=== PATIENT | female | born 2000 | race Caucasian/White ===

== ENCOUNTER 2022-06-19 21:03 | Inpatient (IN) | payer OTHER, SELFPAY ==
[2022-06-19 21:30] VITALS: BP 138/94; PULSE 91; RESP 18; TEMP 36.6; O2SAT 98
[2022-06-19] MEDS: hydrOXYzine HCL 25 MG TABLET PO (23:21)
[2022-06-19] MEDS: Nicotine Polacrilex 2 MG GUM BUCCAL (23:21)
[2022-06-19] MEDS: traZODone HCL 50 MG TABLET PO (23:21)
[2022-06-20 02:25] VITALS: BMI 24.3
--- NOTE | 2022-06-20 02:27 | PC.ADMIT ---
Pt is a 21 year old female admitted to the unit after referral from COMMERCIAL CONSTRUCTION ESTIMATOR. Pt was initially admitted to ED at [facility] in [place] and [place] [facility] [place] Pt arrived on unit on 06/19/2022 at 2115. Legal status is CV. Pt denies currents medical issues but does report a hx of recurrent UTI's /kidney infections as well as exercise induced asthma. Pt reports using THC usually once monthly and vapes daily (equivalent to 1 vape pod a week or 3 cigarettes daily). Pt denies use of ETOH but reports casually drinking. Pt reports that she used cocaine d/t peer pressure situation on Thursday of this past week and it was her 2nd time using it. Pt's 1st cocaine use was 2 years ago. Utox from [facility] ED was positive for cocaine only. Precipitant, per pt; she was missing days from work due to increasing depressive feelings, anxiety and lack of any motivation. Everything started to pile up on pt after meeting with her boss and counsellor about missing work, which led to the use of the cocaine and THC with friends. Pt's work called d/t pt not going to work and pt's Mom once aware, spoke to pt regarding her feelings and was then brought for assessment to [facility]. Pt presents in hospital [facility] with a quiet and pleasant demeanor. Pt maintained good eye contact throughout interview. Pt states that she wants to develop coping skills and medication adjustments, as well as establishing a new psychiatrist for medication prescribing. Provider internet application developer Veto notified of admission and orders obtained. Hospitalist consult requested of Dr. Dodge @ 0680 on 06/20/2022. Pt placed on 15 minute safety checks, reports feeling safe in hospital.
[2022-06-20 09:41] LABS: Estimated Average Glucose 94 mg/dL; Hemoglobin A1c % 4.9 %
[2022-06-20 10:01] LABS: Alanine Aminotransferase 9 U/L (0-31); Alkaline Phosphatase 56 U/L (39-117); Anion Gap 11 (12-20); Aspartate Amino Transferase 12 U/L (5-31); Bilirubin Total 0.6 mg/dL (0.0-1.0); Blood Urea Nitrogen 9 mg/dL (9-16); Calcium 9.3 mg/dL (8.4-10.2); Carbon Dioxide 25 mmol/L (22-29); Chloride 104 mmol/L (96-108); Cholesterol 162 mg/dL; Creatinine Clr Calc Pharmacy 99.4; Estimated Glomerular Filt Rate > 60; Glucose Fasting 104 mg/dL (60-99); HDL Cholesterol 40 mg/dL; LDL Cholesterol Calculated 102 mg/dl; Potassium 4.4 mmol/L (3.3-5.1); Sodium 136 mmol/L (135-145); Total Protein 6.4 g/dL (6.5-8.0); Triglycerides 101 mg/dL
[2022-06-20 10:16] LABS: Thyroid Stimulating Hormone 0.37 uIU/mL (0.32-4.0)
[2022-06-20] MEDS: Nicotine Polacrilex 2 MG GUM BUCCAL ×5 (10:29→20:45)
[2022-06-20 10:31] LABS: Vitamin B12 298 pg/mL (200-900)
[2022-06-20 10:32] VITALS: BP 116/68; PULSE 86; RESP 17; O2SAT 96
--- NOTE | 2022-06-20 11:31 | HO.PM.IMCN ---
History of Present Illness Data of Consult Service Date: 06/20/22 Primary Care Provider: Unknown Physician HPI Reason for consult: Admission H&P Pt is a 21-year-old female with a PMH significant for exercise-induced asthma and recurrent UTIs with previous hospitalization for pyelonephritis who is seen for admission H&P. Pt is on no chronic home medications other than Abilify. Pt has no acute medical complaints at this time. No chest pain/pressure, palpitations. Denies SOB. No F/C, N/V, abdominal pain. Of note, pt has of chronic intermittent right-sided flank pain with no know trigger. PCP has now referred her to a specialist and she will be seeing a anatomy professor outpatient in July. Review of Systems Review of Systems: Denies chest pain/pressure, palpitations Shortness of breath Denies fever, chills, nausea, vomiting No abdominal pain Yes all other systems are reviewed and are negative [facility] Medical History (Updated 06/20/22 @ 11:47 by CARLITA Crain) Exercise-induced asthma Pyelonephritis Family History (Updated 06/20/22 @ 11:46 by CARLITA Crain) Other Asthma HTN (hypertension) Social History Household Members: Family Household Members Other:: Mother, brother Housing: House Do you presently have visiting nurse or other home services: No Patient Tobacco Use Status: Current everyday Tobacco user Years Smoked: 7 years Smoked in Last 30 Days: Yes e-Cigarette/Vaping Use: Currently Using Frequency of e-Cigarette/Vaping Use: 1 pod week Patient Interested in Nicotine Replacement: Yes (gun) Patient Given Instructions on How to Stop Smoking: Yes Date Education Initiated: 06/19/22 Use of substances other than those prescribed or required for medical reasons: Yes Substance Use Type: Crack/Cocaine, Marijuana and Caffiene Substance Use Frequency: Socially Last Used Substance: Weeks (ago) Last Used Substance Other:: THC - once monthly social, cocaine - 2 days ago, 2nd time using EVER Currently Displaying Signs/Symptoms of Drug Intoxication Withdrawal: No Any prior treatment program specific to substance use: No Have you been hit, kicked, punched, or otherwise hurt by someone within the past year? If so, by whom?: No Do you feel safe in your current relationship?: No Current Relationship Are you made to feel afraid or neglected: No Advance Directives: No Do you have thoughts of harming others: None Do you have a plan to hurt others: No Plan Recently lost weight without trying: No Nutrition Risks: No Nutritional Risk Patient : No : No Poor oral hygiene: No Meds Allergies Allergy/AdvReac Type Severity Reaction Status Date / Time penicillin G Allergy Unknown Anaphylaxis Verified 06/19/22 21:14 Active Medications: Current Medications Acetaminophen (Acetaminophen 325 Mg Tablet) 650 mg PO Q6H PRN PRN Reason: Headache/Pain Mild Scale (1-3) Al Hydroxide/Mg Hydroxide (Magnesium Hydrox/Alum Hydrox 30 Ml Oral.Susp) 30 ml PO Q6H PRN PRN Reason: Heartburn/Nausea Hydroxyzine HCl (Hydroxyzine Hcl 25 Mg Tablet) 25 mg PO Q6H PRN PRN Reason: Anxiety Last Admin: 06/19/22 23:21 Dose: 25 mg Magnesium Hydroxide (Milk Of Magnesia 30 Ml Oral.Susp) 30 ml PO DAILY PRN PRN Reason: Constipation Nicotine Polacrilex (Nicotine Polacrilex 2 Mg Gum) 2 mg BUCCAL Q2H PRN PRN Reason: Nicotine Cravings Last Admin: 06/20/22 10:29 Dose: 2 mg Trazodone HCl (Trazodone Hcl 50 Mg Tablet) 50 mg PO BEDTIME PRN PRN Reason: Insomnia Last Admin: 06/19/22 23:21 Dose: 50 mg Physical Exam Vital Signs and Narrative: Vital Signs: Last Vital Signs Temp 97.8 F 06/19/22 21:30 Pulse 86 06/20/22 10:32 Resp 17 06/20/22 10:32 BP 116/68 06/20/22 10:32 Pulse Ox 96 06/20/22 10:32 O2 Del Method 06/19/22 21:30 BMI result Body Mass Index 24.3 Constitutional: Alert, in no acute distress. Mental Status: Oriented to person, place and time. Eyes: Pupils are equal, round, and reactive to light. Ear, Nose, and Throat: Oropharynx clear, mucous membranes moist. Ears and nose without deformities. Trachea midline. Respiratory: Clear to auscultation bilaterally. No wheezing, rales, or rhonchi. Cardiovascular: S1, S2 regular. No murmurs, rubs, or gallops. Gastrointestinal: Abdomen soft, mild right lower quadrant tenderness, non-distended. Normal bowel sounds. Neurologic: Cranial nerves II-XI are grossly intact. No focal neurological deficits. Moves all extremities spontaneously. Skin: No rashes or lesions noted. Musculoskeletal: No cyanosis or clubbing. Extremities: No edema. Psychiatric: Normal mood and affect. Results Labs 06/20/22 09:08 Labs: Laboratory Results - last 24 hr 06/20/22 06/20/22 06/20/22 09:08 09:08 09:08 Anion Gap 11 L Estim Creat Clear Calc 99.4 Estimated GFR > 60 Fasting Glucose 104 H Estimat Average Glucose 94 Hemoglobin A1c % 4.9 Calcium 9.3 Total Bilirubin 0.6 AST 12 ALT 9 Alkaline Phosphatase 56 Total Protein 6.4 L Albumin 4.0 Triglycerides 101 Cholesterol 162 LDL Cholesterol, Calc 102 HDL Cholesterol 40 Vitamin B12 298 Folate 11.0 TSH 0.37 Assessment and Plan (1) Routine history and physical examination of adult: Status: Acute Plan Pt is a 21-year-old female with a PMH significant for exercise-induced asthma and recurrent UTIs with previous hospitalization for pyelonephritis who is seen for admission H&P. Pt is on no chronic home medications other than Abilify. Pt has no acute medical complaints at this time. Right lower-quadrant pain, chronic Pt to f/u outpatient with nephrology in July Thank you for allowing us to participate in the care of this pt. Signing off at this time. Please let us know if there are any future questions or concerns. Time Spent With Patient Time: Total time managing care of this patient today ____ minutes.
[2022-06-20] MEDS: buPROPion HCl XL 150 MG TAB.ER.24H PO (14:37)
[2022-06-20] MEDS: LORazepam 0.5 MG TABLET PO (19:06)
--- NOTE | 2022-06-20 20:08 | P.HPPS_ITS ---
HPI Date of Service: 06/20/22 Chief Complaint: SI HPI Narrative: 21 yo female self-presented with c/o anxiety and depression. she reported feeling overwhelmed, hopeless, amotivated, and purposeless. also frightening mood swings, risky sexual behaviors, excessive spending, isolating from loved ones, uncharacteristically excessive use of substances. on interview with MD, reporting symptoms described above for the past 2 months. she states her mood has been generally depressed and anxious for that time period. she states she typically sleeps about 7 hours nightly but in recent weeks has been sleeping much more. endorses amotivation and anergia. endorsing guilt and hopelessness, decreased concentratrion, and hyperphagia. reports largely PMR, but periods of agitation. denies caesar SI. she reports she was given the bipolar II Dx by yefri walton at [facility] [place], and has tried wellbutrin, zoloft, lamictal, and abilify (see psych Hx for details). discussion of Dx had with pt, asserts his opinion there is perhaps insufficient evidence to make the Dx just yet, that unipolar depression and perhaps substance use may still adequately explain her behaviors and experiences. no FH of bipolar diathesis, yet hypersomnia and -phagia support bipolar diathesis. in any case, due to inadequate trial on wellbutrin - pt states she was only ever on 150 mg daily - and cocern for possible activation by SSRIs if bipolar, pt agrees to another trial of wellbutrin to therapeutic dosing and for an adequate period of time. will star wellbutrin 150 today and increase to 300 on thursday. pt also asks for ativan, for which she had a script, she reports, which is granted. she is interested in GC/chlam testing, but not Hep or HIV. Past Psychiatric History: h/o therapy with same therapist since 10 yo. had been put on abilify 5 mg daily for Dx of bipolar II disorder. med trials: wellbutrin, zoloft, lamictal, abilify. wellbutrin was ineffective but likely was at too low a dose. zoloft was also at low doses. lamictal reportedly worked well for her but she developed rash after dose increase 9 months in and it was DCed. was on abilify 5 for 6 months and she feels it was not effective. her prescriber has reportedly recently terminated services after several no- shows. no h/o hosps, SA, SIB. Medical Evaluation Reviewed: Yes [facility] Medical History (Updated 06/20/22 @ 21:04 by Reji Jorgensen) Exercise-induced asthma Pyelonephritis Family History: father - anxiety, depression, OCD. h/o psych hosps. mother - anxiety and depression Social History: lives in [place] with her mother and younger brother. went on medical leave from her job the day of admission. parents when she was 10 yo. has had limited contact with her father since. HS grad with one year of college with some experience in mental health working at [facility] mental health unit and at [facility]. 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 Substance History: cocaine - utox POS, reports it was only second time she has used, and first in 2 years. per crisis eval, she re[ported using 1-3 times in the past month and started using in social settings several months ago. alcohol - twice weekly, 4-5+ drinks when she does nicotine - vapes Trauma History: denies h/o physical or emotional abuse, childhood sexual abuse or sexual assault. Diagnostics Vital Signs (24Hr): Vital Signs - 24 hr 06/19/22 21:30 06/20/22 10:32 Temperature 97.8 F Pulse Rate 91 86 Respiratory Rate 18 17 Blood Pressure 138/94 H 116/68 Pulse Oximetry 98 96 Oxygen Delivery Method Room Air BMI result Body Mass Index 24.3 Labs 06/20/22 09:08 Labs: Laboratory Results - last 48 hr 06/20/22 06/20/22 06/20/22 09:08 09:08 09:08 Sodium 136 Potassium 4.4 Chloride 104 Carbon Dioxide 25 Anion Gap 11 L BUN 9 Creatinine 0.76 Estim Creat Clear Calc 99.4 Estimated GFR > 60 Fasting Glucose 104 H Estimat Average Glucose 94 Hemoglobin A1c % 4.9 Calcium 9.3 Total Bilirubin 0.6 AST 12 ALT 9 Alkaline Phosphatase 56 Total Protein 6.4 L Albumin 4.0 Triglycerides 101 Cholesterol 162 LDL Cholesterol, Calc 102 HDL Cholesterol 40 Vitamin B12 298 Folate 11.0 TSH 0.37 Meds/Allergies Allergies Allergies Allergy/AdvReac Type Severity Reaction Status Date / Time penicillin G Allergy Unknown Anaphylaxis Verified 06/19/22 21:14 Mental Status Exam Mental Status Exam Narrative: adequately dressed and groomed. no PMA/PMR. cooperative. speech nml rate, amount, loudness, tone, latency. thoughts linear and logical. affect constricted, normo-intense, non-labile. mood pretty anxious and sad and tired. denies SI/SIBI/HI/AVH. Assessment & Plan Assessment & Plan (1) Depression, unspecified: Status: Acute Code(s): F32.A - Depression, unspecified Plan depressive disorder NOS - possibly bipolar II, possibly unipolar. start wellbutrin 150 x 3 days, then increase to 300 daily. pt was educated re lightbox therapy. appears to be under-reporting her substance misuse, from inconsistent statements about it. will need referral for prescriber, has therapist already. check GC/chlam Patient educated on: diagnosis, medication risk/benefits, substance abuse, therapeutic strategies and medical condition Reason for continued inpatient stay Substantial Risk for: inability to function Statement Statement: I have reviewed the history and physical and performed a pertinent examination on my patient. No changes have occurred unless specified. If the History and Physical was not performed prior to admission, the Hospitalist's service will be consulted for completing the admission physical. Time Spent With Patient Time: Total time managing care of this patient today __70__ minutes.
[2022-06-20 20:30] VITALS: BP 120/80; PULSE 96; RESP 18; TEMP 36.8; O2SAT 98
[2022-06-20] MEDS: traZODone HCL 50 MG TABLET PO (22:52)
[2022-06-20] MEDS: hydrOXYzine HCL 25 MG TABLET PO (22:52)
[2022-06-21] MEDS: buPROPion HCl XL 150 MG TAB.ER.24H PO (08:58)
[2022-06-21 09:03] VITALS: BP 90/53; PULSE 74; RESP 16; TEMP 36.8; O2SAT 96
[2022-06-21] MEDS: Nicotine Polacrilex 2 MG GUM BUCCAL ×6 (09:51→22:40)
--- NOTE | 2022-06-21 10:11 | HO.PSYCHPN ---
Subjective Subjective Date of Service: 06/21/22 Reason For Visit: SI Subjective Notes: Conditional Voluntary Healthcare Proxy: No Guardianship: No Medical Problems Affecting Mental Status: No Interim History: Patient was seen and discussed in rounds today. Records and plans were reviewed. Wall she has been isolative, somewhat quiet. She is hoping to learn some new coping skills. She is being increased on her Wellbutrin. No complaints or side effects. Eating and sleeping well. No changes were made today Medication Compliance: Yes Side effects from medications: No Attending Groups: Yes Review of Systems Review of Systems Yes all other systems are reviewed and are negative Mental Status Exam Mental Status Exam Narrative: In today's visit she is alert, oriented and pleasant. Normal speech. Moderate eye contact. Affect is appropriate and constricted. Some anxiety present. No SI. Cognitively intact. Judgment is intact Diagnostics Vital Signs (24Hr): Vital Signs - 24 hr 06/20/22 10:32 06/20/22 20:30 06/21/22 09:03 Temperature 98.2 F 98.3 F Pulse Rate 86 96 74 Respiratory Rate 17 18 16 Blood Pressure 116/68 120/80 90/53 L Pulse Oximetry 96 98 96 Oxygen Delivery Method Room Air Room Air BMI result Body Mass Index 24.3 Labs 06/20/22 09:08 Labs: Laboratory Results - last 48 hr 06/20/22 06/20/22 06/20/22 09:08 09:08 09:08 Sodium 136 Potassium 4.4 Chloride 104 Carbon Dioxide 25 Anion Gap 11 L BUN 9 Creatinine 0.76 Estim Creat Clear Calc 99.4 Estimated GFR > 60 Fasting Glucose 104 H Estimat Average Glucose 94 Hemoglobin A1c % 4.9 Calcium 9.3 Total Bilirubin 0.6 AST 12 ALT 9 Alkaline Phosphatase 56 Total Protein 6.4 L Albumin 4.0 Triglycerides 101 Cholesterol 162 LDL Cholesterol, Calc 102 HDL Cholesterol 40 Vitamin B12 298 Folate 11.0 TSH 0.37 Medications Medications Current Medications Acetaminophen (Acetaminophen 325 Mg Tablet) 650 mg PO Q6H PRN PRN Reason: Headache/Pain Mild Scale (1-3) Al Hydroxide/Mg Hydroxide (Magnesium Hydrox/Alum Hydrox 30 Ml Oral.Susp) 30 ml PO Q6H PRN PRN Reason: Heartburn/Nausea Bupropion HCl (Bupropion Hcl Xl 150 Mg Tab.Er.24h) 150 mg PO DAILY [facility] Stop: 06/22/22 09:01 Last Admin: 06/21/22 08:58 Dose: 150 mg Bupropion HCl (Bupropion Hcl Xl 300 Mg Tab.Er.24h) 300 mg PO DAILY DIGNA Hydroxyzine HCl (Hydroxyzine Hcl 25 Mg Tablet) 25 mg PO Q6H PRN PRN Reason: Anxiety Last Admin: 06/20/22 22:52 Dose: 25 mg Lorazepam (Lorazepam 0.5 Mg Tablet) 0.5 mg PO Q4H PRN PRN Reason: Anxiety Last Admin: 06/20/22 19:06 Dose: 0.5 mg Magnesium Hydroxide (Milk Of Magnesia 30 Ml Oral.Susp) 30 ml PO DAILY PRN PRN Reason: Constipation Nicotine Polacrilex (Nicotine Polacrilex 2 Mg Gum) 2 mg BUCCAL Q2H PRN PRN Reason: Nicotine Cravings Last Admin: 06/21/22 09:51 Dose: 2 mg Trazodone HCl (Trazodone Hcl 50 Mg Tablet) 50 mg PO BEDTIME PRN PRN Reason: Insomnia Last Admin: 06/20/22 22:52 Dose: 50 mg Allergies Allergies Allergy/AdvReac Type Severity Reaction Status Date / Time penicillin G Allergy Unknown Anaphylaxis Verified 06/19/22 21:14 Assessment & Plan Assessment & Plan (1) Depression, unspecified: Status: Acute Code(s): F32.A - Depression, unspecified Plan depressive disorder NOS - possibly bipolar II, possibly unipolar. start wellbutrin 150 x 3 days, then increase to 300 daily. pt was educated re lightbox therapy. appears to be under-reporting her substance misuse, from inconsistent statements about it. will need referral for prescriber, has therapist already. check GC/chlam 06/21: Continue current regimen and plans Reason for contiued inpatient stay Substantial Risk for: med/psych decompensation Time Spent With Patient Time: Total time managing care of this patient today ____ minutes.
[2022-06-21] MEDS: Nicotine 14 MG PATCH.TD24 TRANSDERMA (14:30)
[2022-06-21 15:04] LABS: CT PCR NOT DETECTED (Not Detect.); NG PCR NOT DETECTED (Not Detect.)
[2022-06-21 18:09] VITALS: BP 135/83; PULSE 80; RESP 18; TEMP 36.7; O2SAT 98
[2022-06-21] MEDS: traZODone HCL 50 MG TABLET PO (21:56)
[2022-06-21] MEDS: hydrOXYzine HCL 25 MG TABLET PO (21:56)
[2022-06-22] MEDS: LORazepam 0.5 MG TABLET PO (06:36)
[2022-06-22] MEDS: Acetaminophen 325 MG TABLET 650 MG PO ×2 (06:36→16:32)
--- NOTE | 2022-06-22 07:36 | P.PNPSI_ITS ---
Subjective Subjective Date of Service: 06/22/22 Reason For Visit: SI Subjective Notes: Conditional Voluntary Healthcare Proxy: No Guardianship: No Medical Problems Affecting Mental Status: No Interim History: Patient was seen and discussed in rounds today. Records and plans were reviewed. She has been pleasant, visible. Eating and sleeping adequately. She is having some problems with her urination which may be indicative of an infection which she gets ?often?. A UA with reflex culture was ordered. No other complaints or side effects. Her studies for STD were negative. Medication Compliance: Yes Side effects from medications: No Attending Groups: Yes Review of Systems Review of Systems Urinary discomfort Yes all other systems are reviewed and are negative Mental Status Exam Mental Status Exam Narrative: In today's visit she is alert, oriented and pleasant. Normal speech. Moderate eye contact. Affect is appropriate and constricted. Some anxiety present. No SI. Cognitively intact. Judgment is intact Diagnostics Vital Signs (24Hr): Vital Signs - 24 hr 06/21/22 09:03 06/21/22 18:09 Temperature 98.3 F 98.1 F Pulse Rate 74 80 Respiratory Rate 16 18 Blood Pressure 90/53 L 135/83 Pulse Oximetry 96 98 Oxygen Delivery Method Room Air Room Air BMI result Body Mass Index 24.3 Labs 06/20/22 09:08 Labs: Laboratory Results - last 48 hr 06/20/22 06/20/22 06/20/22 09:08 09:08 09:08 Sodium 136 Potassium 4.4 Chloride 104 Carbon Dioxide 25 Anion Gap 11 L BUN 9 Creatinine 0.76 Estim Creat Clear Calc 99.4 Estimated GFR > 60 Fasting Glucose 104 H Estimat Average Glucose 94 Hemoglobin A1c % 4.9 Calcium 9.3 Total Bilirubin 0.6 AST 12 ALT 9 Alkaline Phosphatase 56 Total Protein 6.4 L Albumin 4.0 Triglycerides 101 Cholesterol 162 LDL Cholesterol, Calc 102 HDL Cholesterol 40 Vitamin B12 298 Folate 11.0 TSH 0.37 Chlam trachomat DNA PCR N.gonorrhoeae DNA (PCR) 06/21/22 12:40 Sodium Potassium Chloride Carbon Dioxide Anion Gap BUN Creatinine Estim Creat Clear Calc Estimated GFR Fasting Glucose Estimat Average Glucose Hemoglobin A1c % Calcium Total Bilirubin AST ALT Alkaline Phosphatase Total Protein Albumin Triglycerides Cholesterol LDL Cholesterol, Calc HDL Cholesterol Vitamin B12 Folate TSH Chlam trachomat DNA PCR NOT DETECTED N.gonorrhoeae DNA (PCR) NOT DETECTED Medications Medications Current Medications Acetaminophen (Acetaminophen 325 Mg Tablet) 650 mg PO Q6H PRN PRN Reason: Headache/Pain Mild Scale (1-3) Last Admin: 06/22/22 06:36 Dose: 650 mg Al Hydroxide/Mg Hydroxide (Magnesium Hydrox/Alum Hydrox 30 Ml Oral.Susp) 30 ml PO Q6H PRN PRN Reason: Heartburn/Nausea Bupropion HCl (Bupropion Hcl Xl 150 Mg Tab.Er.24h) 150 mg PO DAILY [facility] Stop: 06/22/22 09:01 Last Admin: 06/21/22 08:58 Dose: 150 mg Bupropion HCl (Bupropion Hcl Xl 300 Mg Tab.Er.24h) 300 mg PO DAILY [facility] Hydroxyzine HCl (Hydroxyzine Hcl 25 Mg Tablet) 25 mg PO Q6H PRN PRN Reason: Anxiety Last Admin: 06/21/22 21:56 Dose: 25 mg Lorazepam (Lorazepam 0.5 Mg Tablet) 0.5 mg PO Q4H PRN PRN Reason: Anxiety Last Admin: 06/22/22 06:36 Dose: 0.5 mg Magnesium Hydroxide (Milk Of Magnesia 30 Ml Oral.Susp) 30 ml PO DAILY PRN PRN Reason: Constipation Nicotine (Nicotine 14 Mg Patch.Td24) 14 mg TRANSDERMA DAILY [facility] Last Admin: 06/21/22 14:30 Dose: 14 mg Nicotine Polacrilex (Nicotine Polacrilex 2 Mg Gum) 2 mg BUCCAL Q2H PRN PRN Reason: Nicotine Cravings Last Admin: 06/21/22 22:40 Dose: 2 mg Trazodone HCl (Trazodone Hcl 50 Mg Tablet) 50 mg PO BEDTIME PRN PRN Reason: Insomnia Last Admin: 06/21/22 21:56 Dose: 50 mg Allergies Allergies Allergy/AdvReac Type Severity Reaction Status Date / Time penicillin G Allergy Unknown Anaphylaxis Verified 06/19/22 21:14 Assessment & Plan Assessment & Plan (1) Depression, unspecified: Status: Acute Code(s): F32.A - Depression, unspecified Plan depressive disorder NOS - possibly bipolar II, possibly unipolar. start wellbutrin 150 x 3 days, then increase to 300 daily. pt was educated re lightbox therapy. appears to be under-reporting her substance misuse, from inconsistent statements about it. will need referral for prescriber, has therapist already. check GC/chlam 06/21: Continue current regimen and plans 06/22: Continue current regimen and plans. UA with reflex ordered Reason for contiued inpatient stay Substantial Risk for: med/psych decompensation Time Spent With Patient Time: Total time managing care of this patient today ____ minutes.
[2022-06-22] MEDS: buPROPion HCl XL 150 MG TAB.ER.24H PO (08:53)
[2022-06-22] MEDS: Nicotine 14 MG PATCH.TD24 TRANSDERMA (08:53)
[2022-06-22 10:06] VITALS: BP 106/68; PULSE 86; RESP 15; TEMP 36.6; O2SAT 98
[2022-06-22] MEDS: Nicotine Polacrilex 2 MG GUM BUCCAL ×5 (11:18→23:00)
[2022-06-22 11:43] LABS: Bacteria Urine Trace (None Seen); Hyaline Casts Urine 0-2 /LPF (0-2); RBC Urine 0-2 /HPF (0-2)
[2022-06-22 11:46] LABS: Color Urine Yellow; Glucose Urine UA Negative (Negative); Leukocyte Esterase Urine Small (1+) (Negative); Nitrite Urine Negative (Negative); PH 6.5 (5.0-9.0); Specific Gravity - Urine <= 1.005 (1.005-1.025); UACC Culture Trigger YES; UMIC TRIGGER UACC YES; Urine Blood Negative (Negative); Urine Ketones Negative (Negative); Urine Protein Negative (Neg-Trace)
[2022-06-22 11:47] LABS: Appearance Urine Hazy
[2022-06-22 20:15] VITALS: BP 113/75; PULSE 90; RESP 16; TEMP 36.8; O2SAT 97
[2022-06-22] MEDS: Sulfamethox/Trimeth 800/160 TABLET 1 TAB PO (21:10)
[2022-06-22] MEDS: traZODone HCL 50 MG TABLET PO (22:59)
[2022-06-22] MEDS: hydrOXYzine HCL 25 MG TABLET PO (22:59)
[2022-06-23 08:30] VITALS: BP 108/64; PULSE 66; RESP 18; TEMP 36.7; O2SAT 98
[2022-06-23] MEDS: Nicotine 14 MG PATCH.TD24 TRANSDERMA (08:35)
[2022-06-23] MEDS: buPROPion HCl XL 300 MG TAB.ER.24H PO (08:36)
[2022-06-23] MEDS: Sulfamethox/Trimeth 800/160 TABLET 1 TAB PO ×2 (08:36→22:43)
[2022-06-23] MEDS: Nicotine Polacrilex 2 MG GUM BUCCAL ×5 (10:55→21:41)
[2022-06-23] MEDS: LORazepam 0.5 MG TABLET PO (10:55)
--- NOTE | 2022-06-23 14:29 | P.PNPSI_ITS ---
Subjective Subjective Date of Service: 06/23/22 Reason For Visit: SI Interim History: calm, cooperative, pleasant, engaged. acknowledges she is bored. states her anxiety and depression were improved over the weekend. mother requesting family mtg for tomorrow. wanted to DC tomorrow but agreeable to stay for another day to see how she responds to wellbutrin dosing increase. per staffdenies SI/HI/AVH. safe on unit. eating, sleeping. visible. TV. Mental Status Exam Mental Status Exam Narrative: adequately dressed and groomed. no PMA/PMR. cooperative. speech nml rate, amount, loudness, tone, latency. thoughts linear and logical. affect more flexible, normo-intense, non-labile. mood improved. no SI/SIBI/HI/AVH expressed. Diagnostics Vital Signs (24Hr): Vital Signs - 24 hr 06/22/22 20:15 06/23/22 08:30 Temperature 98.2 F 98.0 F Pulse Rate 90 66 Respiratory Rate 16 18 Blood Pressure 113/75 108/64 Pulse Oximetry 97 98 Oxygen Delivery Method Room Air Room Air BMI result Body Mass Index 24.3 Labs 06/20/22 09:08 Labs: Laboratory Results - last 48 hr 06/21/22 06/22/22 06/22/22 12:40 11:20 11:20 Urine Color Yellow Cancelled Urine Appearance Hazy Cancelled Urine pH 6.5 Cancelled Ur Specific [place] <= 1.005 Cancelled Urine Protein Negative Cancelled Urine Glucose (UA) Negative Cancelled Urine Ketones Negative Cancelled Urine Blood Negative Cancelled Urine Nitrite Negative Cancelled Ur Leukocyte Esterase Small (1+) H Cancelled Urine RBC 0-2 Cancelled Urine WBC 11-20 H Cancelled Urine WBC Clumps Cancelled Ur Squamous Epith Cells 6-10 Cancelled Ur Transition Epith Cell Cancelled Ur Renal Epithelial Cell Cancelled Calcium Oxalate Crystal Cancelled Leucine Crystals Cancelled Cystine Crystals Cancelled Tyrosine Crystals Cancelled Other Crystals Cancelled Urine Bacteria Trace Cancelled Urine Parasites Cancelled Bilirubin Casts Cancelled Epithelial Casts Cancelled Fatty Casts Cancelled Hyaline Casts 0-2 Cancelled Granular Casts Cancelled Waxy Casts Cancelled Broad Casts Cancelled RBC Casts Cancelled WBC Casts Cancelled Other Casts Cancelled Urine Trichomonas Cancelled Urine Yeast Cancelled Chlam trachomat DNA PCR NOT DETECTED N.gonorrhoeae DNA (PCR) NOT DETECTED Medications Medications Current Medications Acetaminophen (Acetaminophen 325 Mg Tablet) 650 mg PO Q6H PRN PRN Reason: Headache/Pain Mild Scale (1-3) Last Admin: 06/22/22 16:32 Dose: 650 mg Al Hydroxide/Mg Hydroxide (Magnesium Hydrox/Alum Hydrox 30 Ml Oral.Susp) 30 ml PO Q6H PRN PRN Reason: Heartburn/Nausea Bupropion HCl (Bupropion Hcl Xl 300 Mg Tab.Er.24h) 300 mg PO DAILY [facility] Last Admin: 06/23/22 08:36 Dose: 300 mg Hydroxyzine HCl (Hydroxyzine Hcl 25 Mg Tablet) 25 mg PO Q6H PRN PRN Reason: Anxiety Last Admin: 06/22/22 22:59 Dose: 25 mg Lorazepam (Lorazepam 0.5 Mg Tablet) 0.5 mg PO Q4H PRN PRN Reason: Anxiety Last Admin: 06/23/22 10:55 Dose: 0.5 mg Magnesium Hydroxide (Milk Of Magnesia 30 Ml Oral.Susp) 30 ml PO DAILY PRN PRN Reason: Constipation Nicotine (Nicotine 14 Mg Patch.Td24) 14 mg TRANSDERMA DAILY [facility] Last Admin: 06/23/22 08:35 Dose: 14 mg Nicotine Polacrilex (Nicotine Polacrilex 2 Mg Gum) 2 mg BUCCAL Q2H PRN PRN Reason: Nicotine Cravings Last Admin: 06/23/22 10:55 Dose: 2 mg Trazodone HCl (Trazodone Hcl 50 Mg Tablet) 50 mg PO BEDTIME PRN PRN Reason: Insomnia Last Admin: 06/22/22 22:59 Dose: 50 mg Trimethoprim/Sulfamethoxazole (Sulfamethox/Trimeth 800/160 Tablet) 1 tab PO Q12H [facility] Stop: 07/01/22 23:59 Last Admin: 06/23/22 08:36 Dose: 1 tab Allergies Allergies Allergy/AdvReac Type Severity Reaction Status Date / Time penicillin G Allergy Unknown Anaphylaxis Verified 06/19/22 21:14 Assessment & Plan Assessment & Plan (1) Depression, unspecified: Status: Acute Code(s): F32.A - Depression, unspecified Plan depressive disorder NOS - possibly bipolar II, possibly unipolar. start wellbutrin 150 x 3 days, then increase to 300 daily. pt was educated re lightbox therapy. appears to be under-reporting her substance misuse, from inconsistent statements about it. will need referral for prescriber, has therapist already. check GC/chlam 06/21: Continue current regimen and plans 06/22: Continue current regimen and plans. UA with reflex ordered 06/23: GC/chlam NEG. being empirically treated for UTI. mood improved over past several days. today first day on wellbutrin 300. family mtg tomorrow and plan for weds D/C. Reason for contiued inpatient stay Substantial Risk for: rapid decompensation Time Spent With Patient Time: Total time managing care of this patient today _25___ minutes.
[2022-06-23 20:25] VITALS: BP 119/72; PULSE 85; RESP 16; TEMP 36.6; O2SAT 98
[2022-06-23] MEDS: traZODone HCL 50 MG TABLET PO (22:43)
[2022-06-23] MEDS: hydrOXYzine HCL 25 MG TABLET PO (22:43)
[2022-06-23] MEDS: Acetaminophen 325 MG TABLET 650 MG PO (23:07)
[2022-06-24 08:35] VITALS: BP 96/52; PULSE 72; RESP 18; TEMP 36.6; O2SAT 98
[2022-06-24] MEDS: buPROPion HCl XL 300 MG TAB.ER.24H PO (09:05)
[2022-06-24] MEDS: Nicotine 14 MG PATCH.TD24 TRANSDERMA (09:06)
[2022-06-24] MEDS: Sulfamethox/Trimeth 800/160 TABLET 1 TAB PO ×2 (09:06→21:16)
[2022-06-24] MEDS: Nicotine Polacrilex 2 MG GUM BUCCAL ×4 (10:59→21:14)
--- NOTE | 2022-06-24 11:27 | P.DS_ITS ---
DS: Providers Provider Date of Service: 06/24/22 Date of admission: 06/19/22 21:03 Primary care physician: Unknown Physician Consults: 06/19/22 21:14 Consult to Hospitalist Routine Consulting Provider: Hospitalist Reason For Exam: medical H&P DS: Diagnosis Discharge Diagnosis (1) Depression, unspecified: Status: Acute DS: Medications Discharge Medications Home Medications: Previous Rx's Medication Instructions Recorded bupropion HCl 300 mg 24 hr tablet, 300 mg PO DAILY 30 days #30 tabs 06/24/22 extended release trazodone 50 mg tablet 50 mg PO BEDTIME PRN Insomnia 30 06/24/22 days #30 tabs Mental Status Exam Mental Status Exam Narrative: adequately dressed and groomed. no PMA/PMR. cooperative. speech nml rate, amount, loudness, tone, latency. thoughts linear and logical. affect more flexible, normo-intense, non-labile. mood good. i feel fine. no SI/SIBI/HI/AVH. Data Data Completed and Pending Completed studies during hospitalization [Text1]: 06/20/22 06/20/22 06/20/22 09:08 09:08 09:08 Sodium 136 Potassium 4.4 Chloride 104 Carbon Dioxide 25 Anion Gap 11 L BUN 9 Creatinine 0.76 Estim Creat Clear Calc 99.4 Estimated GFR > 60 Fasting Glucose 104 H Estimat Average Glucose 94 Hemoglobin A1c % 4.9 Calcium 9.3 Total Bilirubin 0.6 AST 12 ALT 9 Alkaline Phosphatase 56 Total Protein 6.4 L Albumin 4.0 Triglycerides 101 Cholesterol 162 LDL Cholesterol, Calc 102 HDL Cholesterol 40 Vitamin B12 298 Folate 11.0 TSH 0.37 Urine Color Urine Appearance Urine pH Ur Specific [place] Urine Protein Urine Glucose (UA) Urine Ketones Urine Blood Urine Nitrite Ur Leukocyte Esterase Urine RBC Urine WBC Urine WBC Clumps Ur Squamous Epith Cells Ur Transition Epith Cell Ur Renal Epithelial Cell Calcium Oxalate Crystal Leucine Crystals Cystine Crystals Tyrosine Crystals Other Crystals Urine Bacteria Urine Parasites Bilirubin Casts Epithelial Casts Fatty Casts Hyaline Casts Granular Casts Waxy Casts Broad Casts RBC Casts WBC Casts Other Casts Urine Trichomonas Urine Yeast Chlam trachomat DNA PCR N.gonorrhoeae DNA (PCR) 06/21/22 06/22/22 06/22/22 12:40 11:20 11:20 Sodium Potassium Chloride Carbon Dioxide Anion Gap BUN Creatinine Estim Creat Clear Calc Estimated GFR Fasting Glucose Estimat Average Glucose Hemoglobin A1c % Calcium Total Bilirubin AST ALT Alkaline Phosphatase Total Protein Albumin Triglycerides Cholesterol LDL Cholesterol, Calc HDL Cholesterol Vitamin B12 Folate TSH Urine Color Yellow Cancelled Urine Appearance Hazy Cancelled Urine pH 6.5 Cancelled Ur Specific [place] <= 1.005 Cancelled Urine Protein Negative Cancelled Urine Glucose (UA) Negative Cancelled Urine Ketones Negative Cancelled Urine Blood Negative Cancelled Urine Nitrite Negative Cancelled Ur Leukocyte Esterase Small (1+) H Cancelled Urine RBC 0-2 Cancelled Urine WBC 11-20 H Cancelled Urine WBC Clumps Cancelled Ur Squamous Epith Cells 6-10 Cancelled Ur Transition Epith Cell Cancelled Ur Renal Epithelial Cell Cancelled Calcium Oxalate Crystal Cancelled Leucine Crystals Cancelled Cystine Crystals Cancelled Tyrosine Crystals Cancelled Other Crystals Cancelled Urine Bacteria Trace Cancelled Urine Parasites Cancelled Bilirubin Casts Cancelled Epithelial Casts Cancelled Fatty Casts Cancelled Hyaline Casts 0-2 Cancelled Granular Casts Cancelled Waxy Casts Cancelled Broad Casts Cancelled RBC Casts Cancelled WBC Casts Cancelled Other Casts Cancelled Urine Trichomonas Cancelled Urine Yeast Cancelled Chlam trachomat DNA PCR NOT DETECTED N.gonorrhoeae DNA (PCR) NOT DETECTED 06/22/22 11:20 Urine clean catch - Urine marie top Urine Culture - Final Escherichia coli DS: Summary Hospital Course Hospital Course: per 06/20 admission note: 21 yo female self-presented with c/o anxiety and depression.? she reported feeling overwhelmed, hopeless, amotivated, and purposeless.? also frightening mood swings, risky sexual behaviors, excessive spending, isolating from loved ones, uncharacteristically excessive use of substances.? on interview with , reporting symptoms described above for the past 2 months.? she states her mood has been generally depressed and anxious for that time period.? she states she typically sleeps about 7 hours nightly but in recent weeks has been sleeping much more.? endorses amotivation and anergia.? endorsing guilt and hopelessness, decreased concentratrion, and hyperphagia.? reports largely PMR, but periods of agitation.? denies caesar SI.? she reports she was given the bipolar II Dx by yefri walton at [facility], and has tried wellbutrin, zoloft, lamictal, and abilify (see psych Hx for details).? discussion of Dx had with pt, asserts his opinion there is perhaps insufficient evidence to make the Dx just yet, that unipolar depression and perhaps substance use may still joseph quately explain her behaviors and experiences.? no FH of bipolar diathesis, yet hypersomnia and -phagia support bipolar diathesis.? in any case, due to inadequate trial on wellbutrin - pt states she was only ever on 150 mg daily - and cocern for possible activation by SSRIs if bipolar, pt agrees to another trial of wellbutrin to therapeutic dosing and for an adequate period of time.? will star wellbutrin 150 today and increase to 300 on thursday.? pt also asks for ativan, for which she had a script, she reports, which is granted.? she is interested in GC/chlam testing, but not Hep or HIV. Past Psychiatric History: h/o therapy with same therapist since 10 yo. had been put on abilify 5 mg daily for Dx of bipolar II disorder. med trials: wellbutrin, zoloft, lamictal, abilify. wellbutrin was ineffective but likely was at too low a dose. zoloft was also at low doses. lamictal reportedly worked well for her but she developed rash after dose increase 9 months in and it was DCed. was on abilify 5 for 6 months and she feels it was not effective. her prescriber has reportedly recently terminated services after several no- shows. no h/o hosps, SA, SIB. Medical Evaluation Reviewed: Yes [facility] Medical History?(Updated 06/20/22 @ 21:04 by Reji Jorgensen) Exercise-induced asthma Pyelonephritis Family History: father - anxiety, depression, OCD. ? h/o psych hosps. mother - anxiety and depression Social History: [place] mother and younger brother.? went on medical leave from her job the day of admission.? parents when she was 10 yo.? has had limited contact with her father since.? HS grad with one year of college with some experience in mental health working at [facility] and at [facility] [employer].? 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 Substance History: cocaine - utox POS, reports it was only second time she has used, and first in 2 years.? per crisis eval, she re[ported using 1-3 times in the past month and started using in social settings several months ago. alcohol - twice weekly, 4-5+ drinks when she does nicotine - vapes Trauma History: denies h/o physical or emotional abuse, childhood sexual abuse or sexual assault. 06/21: Patient was seen and discussed in rounds today.? Records and plans were reviewed.? Wall she has been isolative, somewhat quiet.? She is hoping to learn some new coping skills.? She is being increased on her Wellbutrin.? No complaints or side effects.? Eating and sleeping well.? No changes were made today 06/22: Patient was seen and discussed in rounds today.? Records and plans were reviewed.? She has been pleasant, visible.? Eating and sleeping adequately.? She is having some problems with her urination which may be indicative of an infection which she gets ?often?.? A UA with reflex culture was ordered.? No other complaints or side effects.? Her studies for STD were negative. 06/23: calm, cooperative, pleasant, engaged.? acknowledges she is bored.? states her anxiety and depression were improved over the weekend.? mother requesting family mtg for tomorrow.? wanted to DC tomorrow but agreeable to stay for another day to see how she responds to wellbutrin dosing increase.? per staffdenies SI/HI/AVH.? safe on unit.? eating, sleeping.? visible.? TV. Precis: 06/20: depressive disorder NOS - possibly bipolar II, possibly unipolar. start wellbutrin 150 x 3 days, then increase to 300 daily. pt was educated re lightbox therapy. appears to be under-reporting her substance misuse, from inconsistent statements about it. will need referral for prescriber, has therapist already. check GC/chlam. 06/21: Continue current regimen and plans 06/22: Continue current regimen and plans.? UA with reflex ordered 06/23: GC/chlam NEG.? being empirically treated for UTI.? mood improved over past several days.? today first day on wellbutrin 300.? family mtg tomorrow and plan for weds D/C. 06/24: family mtg held. discharge tomorrow to outpt F/U. no s/e from wellbutrin. Time Spent with Patient Time attestation: Total time managing care of this patient today ____ minutes. Time spent: Greater than 30 minutes Discharge Plan Discharge Anticipated Discharge Date/Time: 06/25/22 11:00 Patient Disposition: Home, Self-Care Discharge Diagnosis: Depressive Disorder NOS Referrals: Dr. Salvador (psychiatrist) [Other] - 07/10/22 10:00 am Partial Hospitalization Program (PHP) [Other] - 07/03/22 8:00 am (IN OFFICE INTAKE) Physician,Unknown J [Primary Care Provider] - 1 Week Discharge Medications: New trazodone 50 mg Tablet 50 mg PO BEDTIME PRN (Reason: Insomnia) 30 Days Qty: 30 0RF bupropion HCl 300 mg Tablet Extended Release 24 Hr 300 mg PO DAILY 30 Days Qty: 30 0RF Discharge Orders: Discharge Order (Routine); Ordered 06/25/22 Ordered By: Reji Jorgensen Diet: Advance to usual diet Activity on Discharge: As tolerated Stand Alone Forms: Patient Portal Discharge page Care Plan Goals: remain safe and sober in the outpatient treatment setting Health Concerns: none Plan of Treatment: take medications as prescribed attend appointments as scheduled Assessment: not at imminent risk of harm to self or others
[2022-06-24] MEDS: LORazepam 0.5 MG TABLET PO ×2 (14:39→23:11)
[2022-06-24 21:18] VITALS: BP 106/62; PULSE 89; TEMP 36.6; O2SAT 99
[2022-06-24] MEDS: Milk of Magnesia 30 ML ORAL.SUSP PO (23:11)
[2022-06-24] MEDS: traZODone HCL 50 MG TABLET PO (23:11)
[2022-06-25] MEDS: Sulfamethox/Trimeth 800/160 TABLET 1 TAB PO (09:35)
[2022-06-25] MEDS: buPROPion HCl XL 300 MG TAB.ER.24H PO (09:35)
[2022-06-25 10:00] VITALS: BP 110/70; PULSE 87; RESP 16; TEMP 36.4; O2SAT 99
[2022-06-25] MEDS: Nicotine Polacrilex 2 MG GUM BUCCAL (10:02)
--- NOTE | 2022-06-25 12:12 | PC.NURSE ---
Patient engages easily. Reports feeling ready to discharge. Reports it was helpful to be here, feels overall improved. Denies depression or sadness, denies SI/HI. Denies self harming ideations. Denies perceptual disturbances, no overt psychosis or expressed delusions. Discharge paperwork reviewed, medications reviewed, follow up appointments reviewed, states understanding. All belongings taken with patient. Crisis numbers were provided to patient. PCP office to call with follow up appointment.
== END 2022-06-25 11:25 | disposition home or self-care (01) | DRG 754 ==
PROVIDERS: Psychiatry & Neurology Psychiatry; Social Worker; Admitting Provider Psychiatry & Neurology Psychiatry; Visit Provider Psychiatry & Neurology Psychiatry
DX: F32.A Depression, unspecified (principal); F17.210 Nicotine dependence, cigarettes, uncomplicated; J45.909 Unspecified asthma, uncomplicated; Z23 Encounter for immunization; Z71.6 Tobacco abuse counseling; Z87.440 Personal history of urinary (tract) infections; Z88.0 Allergy status to penicillin; Z79.899 Other long term (current) drug therapy
CPT/HCPCS: 0353U; 36415; 80053; 80061; 81001; 82607; 82746; 83036; 84443; 87086; 87088; 87186; 90686

== ENCOUNTER 2022-07-24 08:15 | Outpatient (RCR) | payer OTHER, SELFPAY ==
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
[2022-07-04 11:57] VITALS: BMI 23.8
[2022-07-04 13:20] VITALS: BP 100/68; PULSE 80; TEMP 37.1
--- NOTE | 2022-07-04 13:34 | PC.ADMIT ---
Patient is a 21 year old female who was referred to [facility] by the inpatient behavioral health unit where she was admitted d/t mood instability and engaging in risky behaviors. Patient used cocaine prior to admission and was using ETOH on the weekends. Patient reports she was isolating spending a lot of time in bed. Reports depression and anxiety and feeling overwhelmed with financial issues and her job. Patient reports her now previous employer is understanding of her mental health issues and stated she thinks she was fired however she would be able to re-apply for her job if she decided to. Patient wants to work on her mental health. Patient presented with depressed mood and anxious affect. She is oriented x4. Denied SI or thoughts to harm herself. Reports she last used ETOH and cocaine on the 28 of June. Denied any cravings. State she used cocaine socially a few times. Stated all of her friends use and she has distanced herself from her friends as a result. Medications reconciled with inpatient records and per patient. Patient reports she is taking medications as prescribed.
--- NOTE | 2022-07-11 08:01 | HO.PHP ---
The clients case was reviewed and opened in treatment team
--- NOTE | 2022-07-11 09:46 | HO.PHP ---
I called Nilda to check in . She is waiting for the results of a covid test and plans to be here Thursday.
--- NOTE | 2022-07-15 15:19 | HO.PHP ---
luz maria called out sick said she would be here tomorrow
--- NOTE | 2022-07-15 15:21 | HO.PHP ---
i called the client and left a message to see how she is doing and to let her know we look forward to seeing her tomorrow.
--- NOTE | 2022-07-17 16:55 | P.PNPSP_ITS ---
Subjective Subjective Date of Service: 07/17/22 Reason For Visit: depression Medical Problems Affecting Mental Status: No Interim History: Was physically ill over weekend, feels better now. Outpatient psychiatrist prescribed Lexapro last week 10 mg, tolerating well. No SI, no safety concerns. Has been craving using substances recently, states I have been thinking about it a lot ?. Would like further recovery support services. Interested in substance use IOP, as well as attending meetings. Finds living with her grandmother much calmer than previous chaotic home life in [place]. Medication Compliance: Yes Side effects from medications: No Attending Groups: Yes Review of Systems Acute medical concerns: No Medical Review of Systems: unchanged Review of Systems Review of Systems Yes all other systems are reviewed and are negative Constitutional: Reports no additional constitutional complaints Mental Status Exam Mental Status Exam Narrative: NAD. Patient Appearance: Well Grooomed and Appropriate Patient Orientation: Person, Place, Time and Situation Level of Consciousness: Awake, Appropriate and Alert Patient Behavior: Cooperative and Good Eye Contact Mood Description: Appropriate Affect Description: Depressed and Anxious Ability to Follow Directions: Good Speech Pattern: Clear and Appropriate Memory Description: Intact Hallucinations: None Delusions: Not Present Thought Process: Intact Thought Content: positive for Intact Depressive Symptoms: Increased Anxiety, Loss of Int. in Activity, Isolating- Friends/Family, Unhappiness, Low Self Esteem and Loss of Energy Judgement: Fair Diagnostics Vital Signs (24Hr): BMI result Body Mass Index 23.8 Assessment & Plan Assessment & Plan (1) Depression, unspecified: Status: Acute Code(s): F32.A - Depression, unspecified Assessment and Plan: Overall continues with depressed, anxious mood an affect. However, feels slight improvement. Has begun taking Lexapro in addition to other meds, tolerating well. No SI, no safety concerns. (2) Cocaine abuse: Status: Acute Code(s): F14.10 - Cocaine abuse, uncomplicated Assessment and Plan: Has been craving cocaine use recently. Had previously been using it ?a few times a week ?. States that she has been ?thinking about it a lot?. She had used alcohol in the past as well, states that she would do these together. Interested in recovery support information. We discussed recovery center in [place], she was provided with web site information as well as an overview of their services. Also discussed other options such as local community support groups, such as 12 step programs, others. She states she is not sure what she may like to do, but would like information regarding multiple options. Discussed patient attending substance use groups while here in partial. She was agreeable to this plan. Plan 1. Continue with current [facility] plan of care. 2. Continue with medications as currently prescribed by outpatient provider. 3. Patient to participate in substance use groups while in [facility]. 4. Follow-up as per protocol. Patient educated on: diagnosis, medication risk/benefits, substance abuse and therapeutic strategies Informed Consent: understands Reason for contiued partial hosp. stay Substantial Risk for: inability to function and rapid decompensation Certification I certify that partial hospital treatment is medically necessary due to the symptoms and problems resulting from the patient's mental illness and the failure to treat the patient at the partial hospital level of care would likely result in the patient requiring inpatient psychiatric care which could not be prevented at a less intensive level of care. Total time managing care of this patient today _20___ minutes. Discharge Plan Discharge Attending provider: Tiago Anderson Medications: New hydroxyzine HCl 25 mg tablet 25 mg PO QID PRN (Reason: anxiety) Qty: 30 0RF No Action trazodone 50 mg Tablet 50 mg PO BEDTIME PRN (Reason: Insomnia) 30 Days Qty: 30 0RF bupropion HCl 300 mg Tablet Extended Release 24 Hr 300 mg PO DAILY 30 Days Qty: 30 0RF escitalopram oxalate [Lexapro] 10 mg Tablet 10 mg PO DAILY Label Comments: Patient reports her prescriber prescribed the new medication listed above. Stand Alone Forms: Patient Portal Discharge page
[2022-07-18 11:27] VITALS: BP 94/58; PULSE 72
--- NOTE | 2022-07-18 11:30 | PC.NURSE ---
Patient stated she felt tired in group today and shaky . Patient on Wellbutrin and started new medication Lexapro. Medication education provided including how medication can make her tired initially. Advised her not to drive if she feels too sedated. She is alert and oriented x4. BP 94/58 P 72. Encouraged her to increase her fluid intake. Patient did state she drank a lot of caffeine today. Educated patient on caffeine use. Brittany Jean NP is aware Of above information. Advised patient to decrease Lexapro to 5 mg daily per Parisa Lovell NP.
--- NOTE | 2022-07-23 13:56 | P.PNPSP_ITS ---
Subjective Subjective Date of Service: 07/23/22 Reason For Visit: depression Medical Problems Affecting Mental Status: No Interim History: Patient describes mood as ?pretty good ?, less depressed. At some GI upset, vision issues last week, states they have subsided. No SI, no safety concerns. Cocaine recovery going well. 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 Has utilized hydroxyzine twice for anxiety within past week, with positive effect. Tolerating medications well. Medication Compliance: Yes Side effects from medications: No Attending Groups: Yes Review of Systems Acute medical concerns: No Medical Review of Systems: unchanged Review of Systems Review of Systems Yes all other systems are reviewed and are negative Constitutional: Reports no additional constitutional complaints Mental Status Exam Mental Status Exam Narrative: NAD. Patient Appearance: Well Grooomed and Appropriate Patient Orientation: Person, Place, Time and Situation Level of Consciousness: Awake, Appropriate and Alert Patient Behavior: Cooperative and Good Eye Contact Mood Description: Calm and Appropriate Affect Description: Appropriate Ability to Follow Directions: Good Speech Pattern: Clear and Appropriate Memory Description: Intact Hallucinations: None Delusions: Not Present Thought Process: Intact Thought Content: positive for Intact Judgement: Good Diagnostics Vital Signs (24Hr): BMI result Body Mass Index 23.8 Assessment & Plan Assessment & Plan (1) Depression, unspecified: Status: Acute Code(s): F32.A - Depression, unspecified Assessment and Plan: Patient describes mood as ?pretty good ?, less depressed. Feels Wellbutrin is helping with this. At some GI upset, vision issues last week, states they have subsided. No SI, no safety concerns. Cocaine recovery going well. Has requested a population health coach from [facility]. Looks forward to going to the [place], to participate in various activities/groups. 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 Has worked for this [employer] in the past in [place], looking forward to new position. Has utilized hydroxyzine twice for anxiety within past week, with positive effect. Feels that this is adequate with dealing with anxiety. Feels stable for discharge from [facility] at this time. (2) Cocaine abuse: Status: Acute Code(s): F14.10 - Cocaine abuse, uncomplicated Patient educated on: diagnosis, medication risk/benefits, substance abuse and therapeutic strategies Informed Consent: understands Certification I certify that partial hospital treatment is medically necessary due to the symptoms and problems resulting from the patient's mental illness and the failure to treat the patient at the partial hospital level of care would likely result in the patient requiring inpatient psychiatric care which could not be prevented at a less intensive level of care. Total time managing care of this patient today __20__ minutes. Discharge Plan Discharge Attending provider: Tiago Anderson Medications: New hydroxyzine HCl 25 mg tablet 25 mg PO QID PRN (Reason: anxiety) Qty: 30 0RF No Action trazodone 50 mg Tablet 50 mg PO BEDTIME PRN (Reason: Insomnia) 30 Days Qty: 30 0RF bupropion HCl 300 mg Tablet Extended Release 24 Hr 300 mg PO DAILY 30 Days Qty: 30 0RF escitalopram oxalate [Lexapro] 10 mg Tablet 10 mg PO DAILY Label Comments: Patient reports her prescriber prescribed the new medication listed above. Stand Alone Forms: Patient Portal Discharge page Patient Education: Depression (DC)
== END 2022-07-24 23:59 | disposition home or self-care (01) ==
LOC: HO.PHPA 08:15
PROVIDERS: Visit Provider Psychiatry & Neurology Psychiatry
DX: F32.A Depression, unspecified (principal); F14.10 Cocaine abuse, uncomplicated; Z79.899 Other long term (current) drug therapy
CPT/HCPCS: 90791; 90853